=== PATIENT | female | born 1975 | race Caucasian/White ===

== ENCOUNTER 2023-09-27 05:12 | Day surgery (SDC) | payer OTHER ==
[2023-09-23 17:21] VITALS: BMI 23.3
[2023-09-27] MEDS ORDERED: ONDANSETRON 4 MG/2 ML VIAL IVPUSH PRN (14:33)
[2023-09-27] MEDS ORDERED: oxyCODONE HCL 5 MG TABLET PO PRN (14:33)
[2023-09-27] MEDS ORDERED: LACTATED RINGERS SOLUTION 1,000 ML IV SCH (14:45)
[2023-09-27] MEDS ORDERED: KETOROLAC TROMETHAMINE 30 MG/1 ML VIAL ONE (15:03)
[2023-09-27] MEDS ORDERED: FENTANYL CITRATE/PF 50 MCG/ML VIAL ONE (15:03)
[2023-09-27] MEDS ORDERED: ceFAZolin SODIUM 1 GM VIAL ONE (15:03)
[2023-09-27] MEDS ORDERED: MIDAZOLAM HCL 2 MG/2 ML SINGLE DOSE VIAL ONE (15:03)
[2023-09-27] MEDS ORDERED: DEXAMETHASONE SOD PHOSPHATE 4 MG/1 ML VIAL ONE (15:03)
[2023-09-27] MEDS ORDERED: PROPOFOL 20 ML ONE (15:07)
[2023-09-27] MEDS: ceFAZolin SODIUM 1 GM VIAL IVPB ONE (15:10)
[2023-09-27 17:53] VITALS: BP 99/57; PULSE 67; RESP 18; TEMP 97.7
== END 2023-09-27 18:23 | disposition home or self-care (01) ==
LOC: JASU-SURG 05:12
PROVIDERS: ATTEND Obstetrics & Gynecology
PROC: 0UB98ZZ Excision of Uterus, Via Natural or Artificial Opening Endoscopic (ICD-10-PCS; principal; 2023-09-27 13:00)
DX: N92.1 Excessive and frequent menstruation with irregular cycle (principal); D25.9 Leiomyoma of uterus, unspecified
CPT/HCPCS: 81025; 86850; 86900; 86901; 88305-TC; 94760